=== PATIENT | female | born 1985 | race Caucasian/White ===

== ENCOUNTER 2023-08-17 23:55 | Emergency (ER) | payer BC ==
[~2023-08-17] VITALS: Ht 167.6 cm; Wt 72.6 kg
[2023-08-18 00:04] VITALS: BP 154/88; PULSE 92; RESP 20; TEMP 96.8
[2023-08-18] MEDS ORDERED: ONDANSETRON 4 MG/2 ML VIAL IVP ONE (01:45)
[2023-08-18] MEDS ORDERED: NACL 0.9% 1,000 ML IV ONE (01:45)
[2023-08-18] MEDS ORDERED: KETOROLAC 30 MG/ML VIAL IVP ONE (01:45)
[2023-08-18 02:13] LABS: BASOPHILS # (AUTO) 0.1 K/uL (0.00-0.22); BASOPHILS % (AUTO) 0.7 % (0.0-2.0); EOSINOPHILS # (AUTO) 0.1 K/uL (0-0.4); EOSINOPHILS % (AUTO) 0.5 % (0.0-4.0); HEMATOCRIT 41.1 % (36-48); HEMOGLOBIN 14.1 g/dL (12.0-16.0); LYMPHOCYTES # (AUTO) 2.5 K/uL (2.5-16.5); LYMPHOCYTES % (AUTO) 18.9 % (20.5-51.1); MEAN CORPUSCULAR HEMOGLOBIN 32 pg (27-31); MEAN CORPUSCULAR HGB CONC 34 g/dL (33-37); MEAN CORPUSCULAR VOLUME 92.8 fL (80-94); MONOCYTES # (AUTO) 0.9 K/uL (0.8-1.0); MONOCYTES % (AUTO) 6.8 % (1.7-9.3); NEUTROPHILS # (AUTO) 9.6 K/uL (1.8-7.7); NEUTROPHILS % (AUTO) 73.1 % (42.2-75.2); PLATELET COUNT (AUTO) 346 K/uL (140-450); RED BLOOD CELL COUNT(AUTO) 4.42 MIL/uL (4.20-5.40); RED CELL DISTRIBUTION WIDTH 12.9 % (11.6-13.7); WHITE BLOOD COUNT (AUTO) 13.2 K/uL (4.8-10.8)
[2023-08-18 02:34] LABS: CHLORIDE 100 mmol/L (98-107); POTASSIUM 3.2 mmol/L (3.5-5.1); SODIUM SERUM 137 mmol/L (136-145)
[2023-08-18 02:37] LABS: APPEARANCE,URINE CLEAR (CLEAR); BILIRUBIN,URINE 2+ (NEGATIVE); BLOOD, URINE 3+ (NEGATIVE); COLOR,URINE YELLOW (YELLOW); LEUKOCYTE ESTERASE ,URINE NEGATIVE (NEGATIVE); NITRITE, URINE NEGATIVE (NEGATIVE); PROTEIN,URINE TRACE (NEGATIVE); UGLUCOSE NEGATIVE (NEGATIVE)
[2023-08-18 02:44] LABS: BACTERIA,URINE 10-30 (MOD) /HPF (None Seen); ICTOTEST POSITIVE (NEGATIVE); WBC,URINE 0-5 /HPF (0-5)
[2023-08-18 02:45] LABS: MUCUS,URINE 1+ /LPF (None Seen)
[2023-08-18 02:48] LABS: ALANINE AMINOTRANSFERASE 30 U/L (12-78); ALBUMIN 4.1 g/dL (3.4-5.0); ALKALINE PHOSPHATASE 106 U/L (50-136); ANION GAP 16.1 (8-16); ASPARTATE AMINOTRANSFERASE 26 U/L (15-37); CALCIUM 8.8 mg/dL (8.5-10.1); CARBON DIOXIDE 24.1 mmol/L (21-32); CREATININE 0.9 mg/dL (0.6-1.3); GFR ARICAN-AMERICAN 91 mL/min (>90); GFR NON ARICAN-AMERICAN 75 mL/min (>90); GLUCOSE 116 mg/dL (74-106); LIPASE 36 U/L (16-77); TOTAL PROTEIN, SERUM 8.5 g/dL (6.4-8.2); UREA NITROGEN, BLOOD 3 mg/dL (7-18)
[2023-08-18] MEDS ORDERED: ACET-10509 PO (05:12)
[2023-08-18] MEDS ORDERED: ONDA-188 PO (05:12)
[2023-08-18] MEDS ORDERED: BEN10 PO (05:12)
[2023-08-18 05:27] VITALS: BP 144/74; PULSE 92; RESP 20
== END 2023-08-18 05:27 | disposition home or self-care (01) ==
LOC: MED 23:55
DX: K52.9 Noninfective gastroenteritis and colitis, unspecified (principal); D72.829 Elevated white blood cell count, unspecified; Z88.0 Allergy status to penicillin; Z79.899 Other long term (current) drug therapy
CPT/HCPCS: 36415; 71045; 80053; 81001; 81025; 83690; 84484; 85025; 87086; 93005; 96361; 96374; 96375; 99285; J1885; J2405; J7030

== ENCOUNTER 2023-08-19 11:21 | Inpatient (IN) | payer BC ==
[~2023-08-19] VITALS: Ht 167.6 cm; Wt 72.6 kg
[~2023-08-19 11:21] MED LIST: ACET-10509 PO; BEN10 PO; ONDA-188 PO
[2023-08-19 11:27] VITALS: BP 131/93; PULSE 81; RESP 18; TEMP 98.6; O2SAT 100
[2023-08-19] MEDS ORDERED: NACL 0.9% 1,000 ML IV ONE (11:50)
[2023-08-19] MEDS ORDERED: MORPHINE SULFATE 4 MG/ML SYR IVP ONE ×2 (11:50→14:10)
[2023-08-19] MEDS ORDERED: ONDANSETRON 4 MG/2 ML VIAL IVP ONE (11:50)
[2023-08-19 12:13] LABS: BASOPHILS # (AUTO) 0.1 K/uL (0.00-0.22); BASOPHILS % (AUTO) 0.6 % (0.0-2.0); EOSINOPHILS # (AUTO) 0.3 K/uL (0-0.4); EOSINOPHILS % (AUTO) 2.1 % (0.0-4.0); HEMATOCRIT 42.8 % (36-48); HEMOGLOBIN 14.7 g/dL (12.0-16.0); LYMPHOCYTES % (AUTO) 13.9 % (20.5-51.1); MEAN CORPUSCULAR HEMOGLOBIN 32 pg (27-31); MEAN CORPUSCULAR HGB CONC 34 g/dL (33-37); MEAN CORPUSCULAR VOLUME 92.6 fL (80-94); MONOCYTES # (AUTO) 0.9 K/uL (0.8-1.0); MONOCYTES % (AUTO) 6.2 % (1.7-9.3); NEUTROPHILS # (AUTO) 11.2 K/uL (1.8-7.7); NEUTROPHILS % (AUTO) 77.2 % (42.2-75.2); PLATELET COUNT (AUTO) 342 K/uL (140-450); RED BLOOD CELL COUNT(AUTO) 4.62 MIL/uL (4.20-5.40); RED CELL DISTRIBUTION WIDTH 12.8 % (11.6-13.7); WHITE BLOOD COUNT (AUTO) 14.5 K/uL (4.8-10.8)
[2023-08-19 12:28] LABS: INR 0.96 (0.8-1.2); PROTHROMBIN TIME 10.1 secs (10.8-13.4)
[2023-08-19 12:29] LABS: ALBUMIN 4.1 g/dL (3.4-5.0); ANION GAP 14.9 (8-16); CALCIUM 9.2 mg/dL (8.5-10.1); CARBON DIOXIDE 26.1 mmol/L (21-32); CREATININE 0.9 mg/dL (0.6-1.3); TOTAL BILIRUBIN 0.9 mg/dL (0.0-1.0); TOTAL PROTEIN, SERUM 8.8 g/dL (6.4-8.2)
[2023-08-19 12:34] LABS: LACTIC ACID 1.5 mmol/L (0.4-2.0)
[2023-08-19] MEDS ORDERED: KCL 20 MEQ IN 100 mL PREMIX 100 ML IV ONE (12:45)
[2023-08-19 13:07] LABS: APPEARANCE,URINE CLEAR (CLEAR); BILIRUBIN,URINE NEGATIVE (NEGATIVE); BLOOD, URINE 3+ (NEGATIVE); LEUKOCYTE ESTERASE ,URINE NEGATIVE (NEGATIVE); NITRITE, URINE NEGATIVE (NEGATIVE); PROTEIN,URINE NEGATIVE (NEGATIVE); UGLUCOSE NEGATIVE (NEGATIVE); UROBILINOGEN,URINE 0.2 EU/dL (0.2 - 1)
[2023-08-19 13:34] LABS: COLOR,URINE YELLOW (YELLOW)
[2023-08-19 13:35] LABS: BACTERIA,URINE OCCASSIONAL /HPF (None Seen); RBC,URINE 11-20 (MOD) /HPF (0-5); SQUAMOUS EPITHELIAL CELL,UR 0-3 (FEW) /LPF (0-3 (FEW)); WBC,URINE 0-5 /HPF (0-5)
[2023-08-19] MEDS ORDERED: metroNIDAZOLE 500 MG/NS PREMIX 100 ML IV ONE (14:10)
[2023-08-19] MEDS ORDERED: LEVOFLOXACIN 750 MG/D5W PREMIX 150 ML IV ONE (14:10)
[2023-08-19] MEDS ORDERED: ONDANSETRON 4 MG/2 ML VIAL IVP PRN ×2 (15:15→21:40)
[2023-08-19] MEDS ORDERED: LORazepam 2 MG/ML VIAL IVP PRN (15:15)
[2023-08-19] MEDS ORDERED: ACETAMINOPHEN 325 MG TAB PO PRN (15:15)
[2023-08-19] MEDS: NACL 0.9% 1,000 ML IV SCH ×2 (17:16→23:52)
[2023-08-19 18:04] VITALS: BP 122/75; PULSE 88; RESP 18; TEMP 98; O2SAT 98
[2023-08-19] MEDS ORDERED: HYDROmorphone PFS 2 MG/ML SYR ONE ×2 (19:00→22:07)
[2023-08-19] MEDS ORDERED: GLYCOPYRROLATE 0.2 MG/ML VIAL ONE ×5 (19:00→21:18)
[2023-08-19] MEDS ORDERED: ONDANSETRON 4 MG/2 ML VIAL ONE (19:00)
[2023-08-19] MEDS ORDERED: MIDAZOLAM 2 MG/2 ML VIAL ONE ×2 (19:00→19:01)
[2023-08-19] MEDS ORDERED: DEXAMETHASONE 4 MG/ML VIAL ONE (19:00)
[2023-08-19] MEDS ORDERED: SUCCINYLCHOLINE CHLORIDE 200 MG/10 ML VIAL IVP ONE ×2 (19:00→19:06)
[2023-08-19] MEDS ORDERED: ePHEDrine 50 MG/ML VIAL ONE (19:00)
[2023-08-19] MEDS ORDERED: HYDROmorphone 1 MG/ML AMP ONE (19:00)
[2023-08-19] MEDS ORDERED: PROPOFOL 200 MG/20 ML VIAL IV ONE ×2 (19:00→19:02)
[2023-08-19] MEDS ORDERED: LIDOCAINE/EPI MPF 1%1:200000 30 ML VIAL INJ ONE (19:06)
[2023-08-19] MEDS ORDERED: BUPIVACAINE-MPF 0.25% 30 ML VIAL INJ ONE (19:06)
[2023-08-19] MEDS ORDERED: PIPERACILLIN/TAZOBACTAM 3.375 GM in DEXTROSE 5% 50 ML IV SCH (21:00)
[2023-08-19] MEDS ORDERED: NEOSTIGMINE 1:1000 10 MG/10 ML VIAL ONE (21:06)
[2023-08-19] MEDS ORDERED: HYDROcodone/APAP 5/325 MG 1 TAB TAB PO PRN (21:30)
[2023-08-19] MEDS ORDERED: MEPERIDINE 25 MG/ML SYR IVP PRN (21:40)
[2023-08-19] MEDS: HYDROmorphone 1 MG/ML AMP IVP PRN ×3 (22:00→22:20)
[2023-08-19 22:48] VITALS: PULSE 75; RESP 18; O2SAT 98
[2023-08-20] MEDS: MORPHINE SULFATE 2 MG/ML SYR IVP PRN ×4 (03:45→21:48)
[2023-08-20 04:00] VITALS: BP 123/72; PULSE 105; RESP 18; TEMP 97; O2SAT 96
[2023-08-20] MEDS: NACL 0.9% 1,000 ML IV SCH ×3 (06:27→22:42)
[2023-08-20 07:00] LABS: ALBUMIN 2.9 g/dL (3.4-5.0); ANION GAP 13.9 (8-16); BASOPHILS % (AUTO) 0.1 % (0.0-2.0); CARBON DIOXIDE 25.6 mmol/L (21-32); CREATININE 0.8 mg/dL (0.6-1.3); HEMATOCRIT 35.5 % (36-48); HEMOGLOBIN 12.1 g/dL (12.0-16.0); LYMPHOCYTES # (AUTO) 1.1 K/uL (2.5-16.5); LYMPHOCYTES % (AUTO) 9.5 % (20.5-51.1); MEAN CORPUSCULAR HEMOGLOBIN 32 pg (27-31); MEAN CORPUSCULAR HGB CONC 34 g/dL (33-37); MEAN CORPUSCULAR VOLUME 93.4 fL (80-94); MONOCYTES # (AUTO) 0.6 K/uL (0.8-1.0); MONOCYTES % (AUTO) 5.6 % (1.7-9.3); NEUTROPHILS # (AUTO) 9.8 K/uL (1.8-7.7); NEUTROPHILS % (AUTO) 84.8 % (42.2-75.2); PLATELET COUNT (AUTO) 276 K/uL (140-450); POTASSIUM 3.5 mmol/L (3.5-5.1); RED BLOOD CELL COUNT(AUTO) 3.81 MIL/uL (4.20-5.40); RED CELL DISTRIBUTION WIDTH 12.8 % (11.6-13.7); TOTAL BILIRUBIN 0.5 mg/dL (0.0-1.0); TOTAL PROTEIN, SERUM 6.8 g/dL (6.4-8.2); WHITE BLOOD COUNT (AUTO) 11.5 K/uL (4.8-10.8)
[2023-08-20 08:00] VITALS: BP 118/62; PULSE 73; RESP 18; TEMP 98.4; O2SAT 100
[2023-08-20 08:30] VITALS: PULSE 73; RESP 18; O2SAT 100
[2023-08-20 16:00] VITALS: BP 121/66; PULSE 83; RESP 18; TEMP 98; O2SAT 100
[2023-08-20 20:00] VITALS: BP 141/91; PULSE 105; RESP 18; TEMP 98.7; O2SAT 100; O2SAT 98
[2023-08-21 04:00] VITALS: BP 122/77; PULSE 63; RESP 18; TEMP 98.5; O2SAT 100
[2023-08-21 06:38] LABS: BASOPHILS % (AUTO) 0.4 % (0.0-2.0); EOSINOPHILS # (AUTO) 0.2 K/uL (0-0.4); HEMATOCRIT 34.8 % (36-48); HEMOGLOBIN 11.8 g/dL (12.0-16.0); LYMPHOCYTES # (AUTO) 2.4 K/uL (2.5-16.5); LYMPHOCYTES % (AUTO) 26.5 % (20.5-51.1); MEAN CORPUSCULAR HEMOGLOBIN 32 pg (27-31); MEAN CORPUSCULAR HGB CONC 34 g/dL (33-37); MEAN CORPUSCULAR VOLUME 93.2 fL (80-94); MONOCYTES # (AUTO) 0.7 K/uL (0.8-1.0); NEUTROPHILS # (AUTO) 5.6 K/uL (1.8-7.7); NEUTROPHILS % (AUTO) 63.1 % (42.2-75.2); PLATELET COUNT (AUTO) 282 K/uL (140-450); RED BLOOD CELL COUNT(AUTO) 3.73 MIL/uL (4.20-5.40); RED CELL DISTRIBUTION WIDTH 13.1 % (11.6-13.7); WHITE BLOOD COUNT (AUTO) 8.9 K/uL (4.8-10.8)
[2023-08-21] MEDS: NACL 0.9% 1,000 ML IV SCH (06:41)
[2023-08-21 07:04] LABS: ALBUMIN 2.9 g/dL (3.4-5.0); CREATININE 0.6 mg/dL (0.6-1.3); TOTAL BILIRUBIN 0.5 mg/dL (0.0-1.0); TOTAL PROTEIN, SERUM 6.7 g/dL (6.4-8.2)
[2023-08-21 08:00] VITALS: BP 121/70; PULSE 101; RESP 18; TEMP 98.3; O2SAT 97
[2023-08-21] MEDS ORDERED: POTASSIUM CHLORIDE 10 MEQ TABER PO SCH ×2 (10:50→14:00)
[2023-08-21 16:00] VITALS: BP 134/77; PULSE 91; RESP 18; TEMP 97.6; O2SAT 100
== END 2023-08-21 17:55 | disposition home or self-care (01) | DRG 419 ==
LOC: MED 11:21 → MTU 16:47
PROVIDERS: ADMIT Hospitalist; ATTEND Hospitalist
PROC: 0DNU4ZZ Release Omentum, Percutaneous Endoscopic Approach (ICD-10-PCS; 2023-08-19)
PROC: 0FT44ZZ Resection of Gallbladder, Percutaneous Endoscopic Approach (ICD-10-PCS; principal; 2023-08-19 20:15)
DX: K80.62 Calculus of gallbladder and bile duct with acute cholecystitis without obstruction (principal); D72.829 Elevated white blood cell count, unspecified; E87.6 Hypokalemia; Z88.0 Allergy status to penicillin; Z79.899 Other long term (current) drug therapy
CPT/HCPCS: 36415; 76705; 80053; 81001; 83605; 83690; 84132; 84703; 85025; 85610; 86886; 86900; 86901; 87040; 87081; 94010; 96365; 96366; 96367; 96375; 96376; 99291; J0330; J1100; J1170; J1956; J2001; J2250; J2270; J2405; J2704; J2710; J3480; J3490; J7030; J7120; Q9967